=== PATIENT | male | born 1975 | race Caucasian/White ===

== ENCOUNTER 2020-10-12 14:27 | Emergency (ER) | payer OTHER ==
[~2020-10-12] VITALS: Ht 172.7 cm; Wt 88.5 kg
[2020-10-12] MEDS ORDERED: OMEP-218 (14:34)
[2020-10-12 16:43] LABS: BASO # 0.1 10^3/uL (0.0-0.2); BASO % 0.7 % (0.0-1.0); EOS # 0.1 10^3/uL (0.0-0.5); EOS % 1.3 % (0.0-3.0); HEMATOCRIT 43.3 % (42.0-52.0); HEMOGLOBIN 14.4 g/dl (13.5-17.5); LYMPH # 1.4 10^3/uL (1.5-5.0); LYMPH % 20.7 % (24.0-44.0); MEAN CORPUSCULAR HEMOGLOBIN 28.1 pg (27.0-33.0); MEAN CORPUSCULAR HGB CONC 33.3 g/dl (32.0-36.5); MEAN CORPUSCULAR VOLUME 84.6 fl (80.0-96.0); MONO # 0.5 10^3/uL (0.0-0.8); MONO % 6.9 % (2.0-8.0); NEUTROPHILS # 4.8 10^3/uL (1.5-8.5); NEUTROPHILS % 70.1 % (36.0-66.0); PLATELET COUNT, AUTOMATED 311 10^3/uL (150-450); RED BLOOD COUNT 5.12 10^6/uL (4.30-6.10); WHITE BLOOD COUNT 6.9 10^3/uL (4.0-10.0)
[2020-10-12 17:14] LABS: ALBUMIN 4.2 GM/DL (3.2-5.2); ALT/SGPT 58 U/L (12-78); BILIRUBIN,DIRECT < 0.1 MG/DL (0.0-0.2); BILIRUBIN,TOTAL 0.3 MG/DL (0.2-1.0); BLOOD UREA NITROGEN 14 MG/DL (7-18); CARBON DIOXIDE LEVEL 26 MEQ/L (21-32); CHLORIDE LEVEL 107 MEQ/L (98-107); CREATININE FOR GFR 0.76 MG/DL (0.70-1.30); GLOMERULAR FILTRATION RATE > 60.0 (>60); GLUCOSE, FASTING 102 MG/DL (70-100); LIPASE 134 U/L (73-393); POTASSIUM SERUM 4.6 MEQ/L (3.5-5.1); SODIUM LEVEL 139 MEQ/L (136-145); TOTAL PROTEIN 7.4 GM/DL (6.4-8.2)
[2020-10-12] MEDS ORDERED: ISOVUE-370 76% 100ML VIAL As Ordered ONE (18:45)
--- NOTE | 2020-10-12 19:20 | REP ---
INDICATION: upper abdominal pain x 2 months. COMPARISON: None. TECHNIQUE: Multiple ultrasonographic images of the abdominal right upper quadrant. FINDINGS: There is sludge in the gallbladder. There is a nonmobile 4 mm gallbladder wall polyp versus adherent calculus. There is no gallbladder wall thickening or pericholecystic fluid. There is no intrahepatic or extrahepatic biliary duct dilatation. The common biliary duct measures 4.7 mm in diameter. The hepatic parenchyma is mildly hyperechoic compatible with hepato steatosis and homogeneous. There are no hepatic masses. There are limited views of the pancreas, pancreas is mostly obscured by bowel gas. The right kidney is normal size measuring 12.0 x 5.8 x 5.4 cm. There is no right renal calculus, hydronephrosis, cyst or solid mass. There is no right upper quadrant abdominal free fluid. IMPRESSION: There is a non mobile 4 mm gallbladder wall polyp versus adherent calculus. The gallbladder is otherwise unremarkable. There is no evidence of acute cholecystitis. There is mild hepato steatosis. There are limited views of the pancreas. The pancreas is mostly obscured by bowel gas. <Electronically signed by Kyle Norman > 10/12/201916
--- NOTE | 2020-10-12 20:19 | REP ---
INDICATION: upper abdomen. COMPARISON: Abdominal right upper quadrant ultrasound performed earlier today. TECHNIQUE: Abdomen and pelvis CT with IV contrast. FINDINGS: The visualized lung parker are unremarkable. The hepatic parenchyma is homogeneous and otherwise unremarkable. There is a septation in the gallbladder fundus. There are small calcifications in the gallbladder above and below this septation. Additionally there is a 5 mm calculus in the common biliary duct. The common biliary duct proximal to this calculus is dilated measuring up to 14 mm. However, there is no gallbladder wall thickening or pericholecystic fluid to suggest acute cholecystitis. The head, body and tail the pancreas are unremarkable. There is no dilatation of the pancreatic duct. However, there is wall thickening of the proximal transverse colon anterior to the gallbladder and pancreas compatible with infectious versus inflammatory colitis. There are also focal areas of colonic wall thickening in the mid descending colon and in the sigmoid colon, nonspecific, artifact from peristalsis versus inflammatory versus infectious colitis. There is no pneumoperitoneum. There is no ascites. The spleen is unremarkable. The adrenals and kidneys are unremarkable. The abdominal aorta is unremarkable. There is no periaortic adenopathy or mass. There is no bowel distention or obstruction. Pelvis: There is no ascites or adenopathy. The bladder is incompletely distended but otherwise unremarkable. IMPRESSION: There are small gallbladder calculi as described. Additionally there is a 5 mm calculus in the common biliary duct with dilatation of the common duct proximal to this calcification. However, there is no evidence of acute cholecystitis. MRCP might be considered for further evaluation. There is focal wall thickening of the proximal and mid transverse colon compatible with inflammatory versus infectious colitis. Additionally, there is wall thickening of the descending colon and sigmoid colon which is nonspecific and could be secondary to peristalsis or could represent infectious versus inflammatory colitis. There is no ascites. There is no pneumoperitoneum. <Electronically signed by Kyle Norman > 10/12/202014
[2020-10-12 21:47] VITALS: BP 123/84
== END 2020-10-12 21:51 | disposition home or self-care (01) ==
LOC: M ED 14:27
DX: K80.20 Calculus of gallbladder without cholecystitis without obstruction (principal); K21.9 Gastro-esophageal reflux disease without esophagitis; Z87.891 Personal history of nicotine dependence; Z88.0 Allergy status to penicillin
CPT/HCPCS: 74177; 76705; 80048; 80076; 83690; 85025; 99284; Q9967

== ENCOUNTER → 2020-11-01 | Outpatient (CLI) | payer OTHER ==
[~2020-11-01] MED LIST: OMEP-218
--- NOTE | 2020-11-03 09:10 | REP ---
INDICATION: CALCULUS OF BILE DUCT W/ CHRONIC CHOLECYSTITIS. COMPARISON: CT 10/12/2020, ultrasound 10/12/2020. TECHNIQUE: Multiple heavily T2 weighted sequences are obtained in the axial and coronal planes. 3D MIP reconstruction images are performed. FINDINGS: There is no intrahepatic or extrahepatic biliary dilatation. There is no gross biliary stricture and no focal dilatation. Common bile duct has a maximum diameter of approximately 5 mm. Pancreatic duct is normal in caliber. Gallbladder is mildly distended with no wall thickening or edema. There are a few subcentimeter filling defects in the gallbladder compatible with a few subcentimeter stones or polyps. There is gallbladder sludge.. There is no evidence of choledocholithiasis. The visualized liver, spleen, adrenals, pancreas and kidneys are grossly unremarkable. I see no adenopathy or free fluid in the abdomen. IMPRESSION: Few subcentimeter filling defects in the gallbladder compatible with a few subcentimeter stones or polyps. There is gallbladder sludge. There is no biliary dilatation or evidence of choledocholithiasis. <Electronically signed by Kyle Berkowitz > 11/03/20 0906
== END ==
LOC: M RAD 13:29
PROVIDERS: ATTEND Surgery
DX: K80.45 Calculus of bile duct with chronic cholecystitis with obstruction (principal)

== ENCOUNTER → 2020-12-31 | Outpatient (CLI) | payer OTHER, SELFPAY ==
[~2020-12-31] MED LIST changes: +ACET325C5 PO; -OMEP-218; +OMEP-218 PO
== END ==
LOC: M LABSMTC 09:47
PROVIDERS: ATTEND Anesthesiology
DX: Z01.812 Encounter for preprocedural laboratory examination (principal); Z20.822 Contact with and (suspected) exposure to COVID-19

== ENCOUNTER → 2020-12-31 | Outpatient (CLI) | payer SELFPAY ==
--- NOTE | 2021-01-03 16:55 | ECGEPIP ---
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
== END ==
LOC: M EKG 10:09
PROVIDERS: ATTEND Surgery
DX: K80.80 Other cholelithiasis without obstruction (principal)

== ENCOUNTER 2021-01-05 08:24 | Day surgery (SDC) | payer OTHER, SELFPAY ==
[~2021-01-05] VITALS: Ht 175.3 cm; Wt 88.5 kg
[~2021-01-05 08:24] MED LIST changes: +INDOCYANINE GREEN 25MG VIAL (IC-GREEN) IV ONE; +KETOROLAC 60MG 2ML VIAL As Ordered ONE; +LIDOCAINE 1% MDV 20ML VIAL SQ PRN; +LIDOCAINE 2% 100MG/5ML SDV (FOR ANES.) As Ordered ONE; +LR 1,000 ML IV ONE; +LevoFLOXacin IV 500 MG in IV 1 EA IV ONE; +MIDAZOLAM INJ 2MG/2ML VIAL (J2250 PER 1MG) As Ordered ONE; +ONDANSETRON 4MG/2ML VIAL As Ordered ONE; +ROCURONIUM BROMIDE 50 MG/5 ML VIAL As Ordered ONE; +SUGAMMADEX SODIUM 500 MG/5 ML VIAL (BRIDION) As Ordered ONE; +dexameTHASONE 4 MG/ML 1ML VIAL (J1100 PER 1MG) As Ordered ONE; +fentaNYL 250 MCG/5 ML INJECTION (J3010) As Ordered ONE; +propofoL 200 MG/20 ML VIAL As Ordered ONE
--- OUTSIDE RECORDS SUMMARY | 2021-01-05 08:27 | CCD | Continuity of Care Document ---
Author Author YOBANI CHURCH, Luis MORALES Organization Unknown Address [address] [facility] [address] [place] [address] Phone [phone] Care Team Providers Care Corporate Travel Consultant Name Role Phone Carly Jiang N.P AUTM [phone] No PCP AUTM Unavailable Hemanth Wilkinson AUTM [phone] Problems Description No Information Available Social History Type Date Description Comments Sex Unknown ETOH Use Denies alcohol use QUIT 05/2020 Recreational Drug Use Denies Drug Use Tobacco Use Start: Unknown Quit 2017 Tobacco Use Start: Unknown End: Unknown Patient is a former smoker 1 1/2-2 PPD X22 YRS Allergies, Adverse Reactions, Alerts Active Allergies Reaction Severity Comments Date Penicillin V 10/21/2020 Medications Active Medications SIG Qnty Indications Ordering Provide r Date Omeprazole 20mg Capsules DR Take One Capsule By Mouth Twice A Day Unknown Ibuprofen 200 200mg Tablets 2 tabs by mouth twice a day Unknown Tylenol 325mg Tablets 2 tabs by mouth twice a day Unknown One Daily Mens 50+ Multivitamin Mens 50+ Tablets 1 by mouth every day Unknown 0 000 Vitamin B-12 500mcg Tablets 1 by mouth every day Unknown Honey Goat [place] Daily Unknown 0 Roar daily Unknown Immunizations Description No Information Available Vital Signs Date Vital Result Comment 10/21/2020 2:16pm BP Systolic 128 mmHg BP Diastolic 80 mmHg Body Temperature 99.4 F Height 69 inches 5'9" Weight 197.12 lb BMI (Body Mass Index) 29.1 kg/m2 [place] Body Weight 160 lb Weight 89.416 kg BSA (Body Surface Area) 2.05 m2 Results Description No Information Available Procedures Description No Information Available Medical Devices Description No Information Available Encounters Description No Information Available Assessments Description No Information Available Plan of Treatment Future Appointment(s):* 11/24/2020 2:00 pm - RADHA Morel at [facility] Functional Status Description No Information Available Mental Status Description No Information Available Referrals Refer to Dr Reason for Referral Status Appt Date Darnell Mendez M.D. GERD Scheduled 11/24 [facility] [address] [facility], [place] [address] [phone]
--- OUTSIDE RECORDS SUMMARY | 2021-01-05 08:27 | CCD | Continuity of Care Document ---
Author Author YOBANI CHURCH, Luis MORALES Organization Unknown Address [address] [facility] [address] [place] [address] Phone [phone] Care Team Providers Care Brine Room Laborer Name Role Phone Carly Jiang N.P AUTM [phone] No PCP AUTM Unavailable Hemanth Wilkinson AUTM [phone] Problems Description No Information Available Social History [...] by mouth every day Unknown Honey Goat [place] Daily Unknown 0 Roar daily Unknown Immunizations Description No Information Available Vital Signs Date Vital Result Comment 10/21/2020 2:16pm BP Systolic 128 mmHg BP Diastolic 80 mmHg Body Temperature 99.4 F Height 69 inches 5'9" Weight 197.12 lb BMI (Body Mass Index) 29.1 kg/m2 [place] Body Weight 160 lb Weight 89.416 kg BSA (Body Surface Area) 2.05 m2 Results Description No Information Available Procedures Description No Information Available Medical Devices Description No Information Available Encounters Description No Information Available Assessments Description No Information Available Plan of Treatment Future Appointment(s):* 11/24/2020 2:00 pm - RADHA Morel at [facility]ology Practice Functional Status Description No Information Available Mental Status Description No Information Available Referrals Refer to Dr Reason for Referral Status Appt Date Darnell Mendez M.D. GERD Scheduled 11/24 [facility] [address] [facility], [place] [address] [phone]
--- OUTSIDE RECORDS SUMMARY | 2021-01-05 08:27 | CCD | Continuity of Care Document ---
Author Author YOBANI CHURCH, Luis MORALES Organization Unknown Address [address] [facility] [address] [place] [address] Phone [phone] Care Team Providers Care Assistant Nurse Manager Name Role Phone Carly Jiang N.P AUTM [phone] No PCP AUTM Unavailable Hemanth Wilkinson AUTM Problems Description No Information Available Social History Type Date Description Comments Sex Unknown ETOH Use Denies alcohol use QUIT 05/2020 Recreational Drug Use Denies Drug Use Tobacco Use Start: Unknown Quit 2017 Tobacco Use Start: Unknown End: Unknown Patient is a former smoker 1 1/2-2 PPD X22 YRS Allergies, Adverse Reactions, Alerts Active Allergies Criticality Reaction | Severity Comments Date Penicillin V Unable to assess criticality 10/21/2020 Medications Active Medications SIG Qnty Indications [...] by mouth every day Unknown Honey Goat [place] Daily Unknown 0 Roar daily Unknown Immunizations Description No Information Available Vital Signs Date Vital Result Comment 11/06/2020 3:05pm BP Systolic 156 mmHg BP Diastolic 89 mmHg Heart Rate 80 /min Body Temperature 99.2 F Height 69 inches 5'9" Weight 192.00 lb BMI (Body Mass Index) 28.4 kg/m2 [place] Body Weight 160 lb Weight 87.091 kg BSA (Body Surface Area) 2.03 m2 10/21/2020 2:16pm BP Systolic 128 mmHg BP Diastolic 80 mmHg Body Temperature 99.4 F Height 69 inches 5'9" Weight 197.12 lb BMI (Body Mass Index) 29.1 kg/m2 [place] Body Weight 160 lb Weight 89.416 kg BSA (Body Surface Area) 2.05 m2 Results Description No Information Available Procedures Description No Information Available Medical Devices Description No Information Available Encounters Description No Information Available Assessments Description No Information Available Plan of Treatment Future Appointment(s):* 11/24/2020 2:00 pm - RADHA Morel at [facility] Gastroenterology Practice Functional Status Description No Information Available Mental Status Description No Information Available Referrals Refer to Reason for Referral Status Appt Date Darnell Mendez M.D. GERD Scheduled 11/24 [facility] [address] [facility], [place] [address] [phone]
--- OUTSIDE RECORDS SUMMARY | 2021-01-05 08:27 | CCD | Continuity of Care Document ---
Author Author YOBANI CHURCH, Luis MORALES Organization Unknown Address [address] [facility] [address] [place] [address] Phone [phone] Care Team Providers Care Ash Handler Name Role Phone Carly Jiang N.P AUTM [phone] No PCP AUTM Unavailable Hmeanth Wilkinson AUTM Problems Description No Information Available Social History Type Date Description Comments Sex Unknown ETOH Use Denies alcohol use QUIT 05/2020 Recreational Drug Use Denies Drug Use Tobacco Use Start: Unknown Quit 2017 Tobacco Use Start: Unknown End: Unknown Patient is a former smoker 1 1/2-2 PPD X22 YRS Allergies and adverse reactions Active Allergies Criticality Reaction | Severity Comments [...] by mouth every day Unknown Honey Goat [place] Daily Unknown 0 Roar daily Unknown Immunizations Description No Information Available Vital Signs Date Vital Result Comment 11/06/2020 3:05pm BP Systolic 156 mmHg BP Diastolic 89 mmHg Heart Rate 80 /min Body Temperature 99.2 F Height 69 inches 5'9" Weight 192.00 lb BMI (Body Mass Index) 28.4 kg/m2 [place] Body Weight 160 lb Weight 87.091 kg BSA (Body Surface Area) 2.03 m2 10/21/2020 2:16pm BP Systolic 128 mmHg BP Diastolic 80 mmHg Body Temperature 99.4 F Height 69 inches 5'9" Weight 197.12 lb BMI (Body Mass Index) 29.1 kg/m2 [place] Body Weight 160 lb Weight 89.416 kg BSA (Body Surface Area) 2.05 m2 Results Description No Information Available Procedures Date Code Description Status 11/06/2020 33035 Office/Outpatient Established Mo d MDM 30-39 Min Completed 10/21/2020 03032 Office/Outpatient New Low MDM 30 -44 Minutes Completed Medical Devices Description No Information Available Encounters Type Date Location Provider Dx Diagnosis Office Visit 11/06/2020 3:00p [facility] Daniel Sandoval MD K80.20 Calculus of gallbladder w/o cholecystitis w/o obstruction Office Visit 10/21/2020 2:00p [facility] Daniel Sandoval MD K80.20 Calculus of gallbladder w/o cholecystitis w/o obstruction Assessments Date Code Description Provider 11/06/2020 K80.20 Cholelithiasis without obstructi on Clarence Sandoval MD 10/21/2020 K80.20 Cholelithiasis without obstructi on Clarence Sandoval MD Plan of Treatment Future Appointment(s):* 01/19/2021 9:15 am - SHAY Mckeon at [facility] * 01/05/2021 12:45 pm - Clarence Sandoval MD at [facility] 11/06/2020 - Clarence Sandoval MD* K80.20 Cholelithiasis without obstruction* Comments:* Since we saw him last, he reports an episode of biliary colic episode last Tuesday. He had an MRCP done last week and this did not demonstrate any dilation of the biliary tract no evidence for choledocholithiasis. We will proceed with robotic assisted laparoscopic cholecystectomy. I explained to him that this is usually an outpatient procedure. This will be done under general anesthesia.I discussed with the patient the details of the proposed procedure, the benefits of performing the procedure, the most common risks on doing the procedure. This may include risks of general anesthesia, risks of laparoscopy including bowel and vascular injury, risks specific to gallbladder surgery including bile duct injury, bile leak. We also discussed the expected postoperative course, sequelae to not having gallbladder including loose stools, frequent stools. I have given him a chance to ask questions, voice out concerns. Patient has agreed to proceedHe was asking for an excuse letter for his absence from work. I told him we will give him an excuse letter for the time that we saw him and was evaluated by us. Functional Status Description No Information Available Mental Status Description No Information Available Referrals Refer to Reason for Referral Status Appt Date Darnell Mendez M.D. GERD Scheduled 11/24 [facility]- [address] [facility], [address] [place] [address] [phone]
--- OUTSIDE RECORDS SUMMARY | 2021-01-05 08:27 | CCD ---
Author Author [facility] Organization [facility] Address Unknown Phone Unavailable Care Team Providers Care Capital [employer] Specialist Name Role Phone Jiang Carly SENIOR STATISTICIAN Unavailable Unavailable Jiang, Carly SENIOR STATISTICIAN Unavailable Unavailable Jiang, Carly SENIOR STATISTICIAN Unavailable Unavailable Jiang, Carly SENIOR STATISTICIAN Unavailable Unavailable Jiang, Carly SENIOR STATISTICIAN Unavailable Unavailable Jiang, Carly SENIOR STATISTICIAN Unavailable Unavailable Jiang, Carly SENIOR STATISTICIAN Unavailable Unavailable Jiang, Carly SENIOR STATISTICIAN Unavailable Unavailable Jiang, Carly SENIOR STATISTICIAN Unavailable Unavailable Jiang, Carly SENIOR STATISTICIAN Unavailable Unavailable Jiang, Carly SENIOR STATISTICIAN Unavailable Unavailable Jiang, Carly SENIOR STATISTICIAN Unavailable Unavailable Jiang, Carly SENIOR STATISTICIAN Unavailable Unavailable Alex HILTON MD Unavailable Unavailable Alex HILTON MD Unavailable Unavailable Alex HILTON MD Unavailable Unavailable Alex HILTON MD Unavailable Unavailable Alex HILTON MD Unavailable Unavailable Alex HILTON MD Unavailable Unavailable Alex HILTON MD Unavailable Unavailable Alex HILTON MD Unavailable Unavailable Alex HILTON MD Unavailable Unavailable Alex HILTON MD Unavailable Unavailable Alex HILTON MD Unavailable Unavailable Alex HILTON MD Unavailable Unavailable Alex HILTON MD Unavailable Unavailable Alex HILTON MD Unavailable Unavailable Alex HILTON MD Unavailable Unavailable Alex HILTON MD Unavailable Unavailable Alex HILTON MD Unavailable Unavailable BARAYUGA, Alex MORALES MD Unavailable Unavailable BARAYUGA, Alex MORALES MD Unavailable Unavailable BARAYUGA, Alex MORALES MD Unavailable Unavailable BARAYUGA, Alex FRANCOISO Unavailable Unavailable BARAYUGA, Alex FRANCOISO Unavailable Unavailable BARAYUGA, Alex FRANCOISO Unavailable Unavailable BARAYUGA, Alex CARMEN Unavailable Unavailable BARAYUGA, B CARMEN Unavailable Unavailable BARAYUGA, B CARMEN Unavailable Unavailable BARAYUGA, B CARMEN Unavailable Unavailable BARAYUGA, B CARMEN Unavailable Unavailable BARAYUGA, B CARMEN Unavailable Unavailable BARAYUGA, B CARMEN Unavailable Unavailable BARAYUGA, B CARMEN Unavailable Unavailable BARAYUGA, B CARMEN Unavailable Unavailable BARAYUGA, B CARMEN MD Unavailable Unavailable BARAYUGA, B CARMEN MD Unavailable Unavailable BARAYUGA, B CARMEN MD Unavailable Unavailable Call, Cindy Mili PA Unavailable Unavailable Call, Cindy Mili PA Unavailable Unavailable Call, Cindy Mili PA Unavailable Unavailable Call, Cindy Mili PA Unavailable Unavailable Call, Cindy Mili PA Unavailable Unavailable Call, Cindy Mili PA Unavailable Unavailable Call, Cindy Mili PA Unavailable Unavailable Call, Cindy Mili PA Unavailable Unavailable Call, Cindy Mili PA Unavailable Unavailable Call, Cindy Mili PA Unavailable Unavailable Re-disclosure Warning The records that you are about to access may contain information from federally-assisted alcohol or drug abuse programs. If such information is present, then the following federally mandated warning applies: This information has been disclosed to you from records protected by federal confidentiality rules (42 CFR part 2). The federal rules prohibit you from making any further disclosure of this information unless further disclosure is expressly permitted by the written consent of the person to whom it pertains or as otherwise permitted by 42 CFR part 2. A general authorization for the release of medical or other information is NOT sufficient for this purpose. The Federal rules restrict any use of the information to criminally investigate or prosecute any alcohol or drug abuse patient.The records that you are about to access may contain highly sensitive health information, the redisclosure of which is protected by Article 27-F of the [facility] Public Health law. If you continue you may have access to information: Regarding HIV / AIDS; Provided by facilities licensed or operated by the [facility] Office of Mental Health; or Provided by the [facility] Office for People With Developmental Disabilities. If such information is present, then the following [facility] mandated warning applies: This information has been disclosed to you from confidential records which are protected by state law. State law prohibits you from making any further disclosure of this information without the specific written consent of the person to whom it pertains, or as otherwise permitted by law. Any unauthorized further disclosure in violation of state law may result in a fine or retirement sentence or both. A general authorization for the release of medical or other information is NOT sufficient authorization for further disc losure. Family History Family Member Name Family Member Gender Family Member Status Date o f Status Description Data Source(s) Unknown Unknown Problem [facility] ([facility]) Mother Encounters Encounter Providers Location Date Indications Data Source(s ) Outpatient Attender: CARMEN Bustillos/Jacy/ Asher 11/06/2020 03:00:00 PM EDT [facility] ([facility] Outpatient Attender: CARMEN Sterling 10/21/2020 02:00:00 PM EDT [facility] ([facility]) Outpatient Attender: Carly ch 09/16/2020 04:50:00 PM EDT [facility] ([facility]) Outpatient Attender: Mili krishnamurthy 05/27/2020 05:35:00 PM EDT [facility] ([facility]) Medications Medication Brand Name Start Date Product Form Dose Route Admi nistrative Instructions Pharmacy Instructions Status Indications Reaction Description Data Source(s) 20 mg 09/17/2020 12:00:00 AM EDT capsule,delayed release (DR/EC) 30 TAKE ONE CAPSULE BY MOUTH TWICE A DAY TAKE ONE CAPSULE BY MOUTH TWICE A DAY SOLD: 10/19/2020 [facility] 20 mg 09/17/2020 12:00:00 AM EDT capsule,delayed release (DR/EC) 30 TAKE ONE CAPSULE BY MOUTH TWICE A DAY TAKE ONE CAPSULE BY MOUTH TWICE A DAY SOLD: 09/17/2020 [facility] Omeprazole 20 MG Delayed Release Oral Capsule Omeprazole 09/16/2020 12:00:00 AM EDT ORAL active [facility] ([facility]) Insurance Providers Payer name Policy type / Coverage type Policy ID Covered alliance party ID Covered alliance party's relationship to watkins Policy [place] Plan Information [facility] [id number] SP [id number] SELF PAY ONLY [id number] SP [id number] [facility] [id number] SP [id number] [facility] [id number] SP [id number] [facility] Organization ([facility]) [id number] Self [id number] [facility] ([facility]) [id number] Self [id number] Problems, Conditions, and Diagnoses No Information Surgeries/Procedures Procedure Description Date Indications Data Source(s) OFFICE OUTPATIENT VISIT 25 MINUTES 11/06/2020 12:00:00 AM EDT [facility] ([facility]) OFFICE OUTPATIENT NEW 30 MINUTES 10/21/2020 12:00:00 A M EDT [facility] ([facility]) OFFICE OUTPATIENT VISIT 15 MINUTES 09/16/2020 12:00:00 AM EDT [facility] ([facility]) Remove Impact Cerumen Irrigati 05/27/2020 12:00:00 AM EDT [facility] ([facility]) OFFICE OUTPATIENT VISIT 15 MINUTES 05/27/2020 12:00:00 AM EDT [facility] ([facility]) Results ID Date Data Source [id number] 12/31/2020 09:40:00 AM EDT [facility] Name Value Range Interpretation Code Description Data Rossy rce(s) Supporting Document(s) SARS-CoV-2 (COVID-19) RNA [Presence] in Respiratory specimen by MARY with probe detection Not Detected [facility] This lab was ordered by [facility] and reported by [facility]. Procedure Social History No Information Vital Signs ID Date Data Source UNK Name Value Range Interpretation Code Description Data Source(s) Systolic blood pressure 156 mm[Hg] 156 mm[Hg] [facility] ([facility]) Diastolic blood pressure 89 mm[Hg] 89 mm[Hg] [facility] ([facility]) Heart rate 80 /min 80 /min [facility] ([facility]) Body temperature 99.2 [degF] 99.2 [degF] [facility] ([facility]) Body height 69 [in_i] 69 [in_i] [facility] ([facility]) 5'9" Body weight 192.00 [lb_av] 192.00 [lb_av] [facility] ([facility]) Body mass index (BMI) [Ratio] 28.4 kg/m2 28.4 k g/m2 [facility] ([facility]) [place] body weight 160 [lb_av] 160 [lb_av] [facility] ([facility]) Body weight 87.091 kg [address] [facility] ([facility]) Body surface area Derived from formula 2.03 m2 [address] [facility] ([facility]) Systolic blood pressure 128 mm[Hg] 128 mm[Hg] [facility] ([facility]) Diastolic blood pressure 80 mm[Hg] 80 mm[Hg] [facility] ([facility]) Body temperature 99.4 [degF] 99.4 [degF] [facility] ([facility]) Body height 69 [in_i] 69 [in_i] [facility] ([facility]) 5'9" Body weight 197.12 [lb_av] 197.12 [lb_av] [facility] ([facility]) Body mass index (BMI) [Ratio] 29.1 kg/m2 29.1 k g/m2 [facility] ([facility]) [place] body weight 160 [lb_av] 160 [lb_av] [facility] ([facility]) Body weight 89.416 kg 89.416 kg [facility] ([facility]) Body surface area Derived from formula 2.05 m2 [address] [facility] ([facility]) Systolic blood pressure 132 mm[Hg] 132 mm[Hg] [facility] ([facility], [facility]) Diastolic blood pressure 66 mm[Hg] 66 mm[Hg] [facility] ([facility], [facility]) Heart rate 97 /min 97 /min [facility] ([facility]) Respiratory rate 16 /min 16 /min [facility] ( [facility], [facility]) Oxygen saturation in Arterial blood by Pulse oximetry 98 % 98 % [facility], [facility]) Body temperature 99.5 [degF] 99.5 [degF] [facility] ([facility], [facility]) Body weight 180.00 [lb_av] 180.00 [lb_av] [facility] T ([facility], [facility]) Body height 69 [in_i] 69 [in_i] [facility] ([facility], [facility]) 5'9" Body mass index (BMI) [Ratio] 26.6 kg/m2 26.6 k g/m2 [facility] ([facility], [facility]) Systolic blood pressure 142 mm[Hg] 142 mm[Hg] [facility] ([facility], [facility]) Diastolic blood pressure 84 mm[Hg] 84 mm[Hg] [facility] ([facility], [facility]) Heart rate 90 /min 90 /min [facility] ([facility], [facility]) Respiratory rate 16 /min 16 /min [facility] ( [facility], [facility]) Oxygen saturation in Arterial blood by Pulse oximetry 97 % 97 % [facility] ([facility], [facility]) Body temperature 98.4 [degF] 98.4 [degF] [facility] ([facility], [facility]) Body weight 180.00 [lb_av] 180.00 [lb_av] [facility] T ([facility], [facility]) Body height 69 [in_i] 69 [in_i] [facility] ([facility], [facility]) 5'9" Body mass index (BMI) [Ratio] 26.6 kg/m2 26.6 k g/m2 [facility])
--- OUTSIDE RECORDS SUMMARY | 2021-01-05 08:27 | CCD | Continuity of Care Document ---
Author Author YOBANI CHURCH, Luis MORALES Organization Unknown Address [address] [place] [address] Phone [phone] Care Team Providers Care Rolfer Name Role Phone Carly Jiang N.P AUTM [phone] No PCP AUTM Unavailable Hemanth Wilkinson AUTM [...] by mouth every day Unknown Honey Goat [place] Daily Unknown 0 Roar daily Unknown Immunizations Description No Information Available Vital Signs Date Vital Result Comment 11/06/2020 3:05pm BP Systolic 156 mmHg BP Diastolic 89 mmHg Heart Rate 80 /min Body Temperature 99.2 F Height 69 inches 5'9" Weight 192.00 lb BMI (Body Mass Index) 28.4 kg/m2 [place] Body Weight 160 lb Weight 87.091 kg BSA (Body Surface Area) 2.03 m2 10/21/2020 2:16pm BP Systolic 128 mmHg BP Diastolic 80 mmHg Body Temperature 99.4 F Height 69 inches 5'9" Weight 197.12 lb BMI (Body Mass Index) 29.1 kg/m2 [place] Body Weight 160 lb Weight 89.416 kg BSA (Body Surface Area) 2.05 m2 Results Description No Information Available Procedures Date Code Description Status 11/06/2020 49524 Office/Outpatient Established Mo d MDM 30-39 Min Completed 10/21/2020 97956 Office/Outpatient New Low MDM 30 -44 Minutes Completed Medical Devices Description No Information Available Encounters Type Date Location Provider Dx Diagnosis Office Visit 11/06/2020 3:00p [facility] Daniel Sandoval MD K80.20 Calculus of gallbladder w/o cholecystitis w/o obstruction Office Visit 10/21/2020 2:00p [facility] Daniel Sandoval MD K80.20 Calculus of gallbladder w/o cholecystitis w/o obstruction Assessments Date Code Description Provider 11/06/2020 K80.20 Cholelithiasis without obstructi on Clarence Sandoval MD 10/21/2020 K80.20 Cholelithiasis without obstructi on Clarence Sandoval MD Plan of Treatment Future Appointment(s):* 01/19/2021 9:15 am - SHAY Mckeon at [facility] * 01/05/2021 12:45 pm - Clarence Sandoval MD at [facility] 11/06/2020 - Clarence Sandoval MD* K80.20 Cholelithiasis [...] Reason for Referral Status Appt Date Darnell Mendze M.D. GERD Scheduled 11/24 [facility] [address], [address] [place] [address] [phone]
--- OUTSIDE RECORDS SUMMARY | 2021-01-05 08:27 | CCD | Continuity of Care Document ---
Author Author YOBANI CHURCH, Luis MORALES Organization Unknown Address [address] [place] [address] Phone [phone] Care Team Providers Care Superintendent Storage Area Name Role Phone Carly Jiang N.P AUTM [phone] No PCP AUTM Unavailable Hemanth Wilkinson AUTM [phone] Problems Description No Information Available Social History [...] by mouth every day Unknown Honey Goat [place] Daily Unknown 0 Roar daily Unknown Immunizations Description No Information Available Vital Signs Date Vital Result Comment 10/21/2020 2:16pm BP Systolic 128 mmHg BP Diastolic 80 mmHg Body Temperature 99.4 F Height 69 inches 5'9" Weight 197.12 lb BMI (Body Mass Index) 29.1 kg/m2 [place] Body Weight 160 lb Weight 89.416 kg BSA (Body Surface Area) 2.05 m2 Results Description No Information Available Procedures Description No Information Available Medical Devices Description No Information Available Encounters Description No Information Available Assessments Description No Information Available Plan of Treatment Future Appointment(s):* 11/24/2020 2:00 pm - RADHA Morel at [facility] Functional Status Description No Information Available Mental Status Description No Information Available Referrals Refer to Dr Reason for Referral Status Appt Date Darnell Mendez M.D. GERD Scheduled 11/24 [facility] [address], [place] [address] [phone]
[2021-01-05] MEDS ORDERED: LIDOCAINE 1% SDV 30ML VIAL As Ordered ONE (11:07)
[2021-01-05] MEDS ORDERED: BUPIVACAINE HCL 0.25% 30ML VIAL As Ordered ONE (11:07)
[2021-01-05] MEDS ORDERED: CONRAY-60 60% 50ML VIAL (Q9961) As Ordered ONE (11:08)
[2021-01-05] MEDS ORDERED: ACETAMINOPHEN 1000MG 100ML IV BTL (OFIRMEV) (J0131 PER 10MG) As Ordered ONE (12:08)
[2021-01-05] MEDS ORDERED: NORCO, ANEXSIA 5/325MG TABLET (HYDROcodone/ACETAMINOPHEN) PO PRN (13:35)
[2021-01-05] MEDS ORDERED: LR 1,000 ML IV SCH (13:35)
[2021-01-05] MEDS ORDERED: ONDANSETRON 4MG/2ML VIAL IV PRN (13:35)
[2021-01-05] MEDS ORDERED: HYDROMORPHONE HCL 0.5 MG/ 0.5 ML SYRINGE (J1170 PER 1) IV PRN (13:35)
[2021-01-05] MEDS ORDERED: KETOROLAC 30 MG/ML 1ML VIAL IV PRN (13:35)
[2021-01-05] MEDS ORDERED: oxyCODONE 5MG TAB PO PRN (13:35)
[2021-01-05] MEDS ORDERED: METOCLOPRAMIDE INJ 10MG/2ML VIAL (J2765 PER 1) IV PRN (13:35)
[2021-01-05] MEDS ORDERED: fentaNYL 100 MCG/2 ML INJECTION (J3010) IV PRN (13:35)
[2021-01-05 13:45] VITALS: BP 132/96
--- NOTE | 2021-01-06 04:38 | ROOPDOC ---
[facility] Report Of Operation Report of Operation DATE OF PROCEDURE: 01/05/21 PREPROCEDURE DIAGNOSES: Cholelithiasis, history of acute cholecystitis. POSTPROCEDURE DIAGNOSES: Cholelithiasis, chronic cholecystitis. PROCEDURE PERFORMED: Robotic assisted laparoscopic cholecystectomy with ICG for biliary tract identification. SURGEON: Clarence Sandoval MD LBD TEACHER: Whitney Box NP Box assisted me with placement of ports, instrument exchange and management of the robotic arms, extraction of the gallbladder and closure of ports ANESTHESIA: General endotracheal anesthesia. ESTIMATED BLOOD LOSS: Approximately 10 mL. COMPLICATIONS: None. REMARKS: Patient is a 45-year-old male who has at least one documented episode of acute cholecystitis when he presented to the emergency room with acute onset of right upper quadrant pain with evidence for cholelithiasis and acute cholecystitis. At that time he had transient elevation of his LFTs. This was worked up with an MRCP preoperatively that did not show any biliary tract identification, no external biliary tree abnormality, no presence of c holedocholithiasis. He is for cholecystectomy today.. FINDINGS: Chronically thickened gallbladder, moderate amounts of fatty tissue deposition to the hepatocystic triangle. And ICG and firefly, the gallbladder does not opacify and on further dissection the distal cystic duct does not opacify with opacification of the proximal cystic duct, common bile duct, common hepatic duct signifying a distal obstruction to the cystic duct due to a stone that is chronically impacted at the area. SPECIMENS REMOVED: Gallbladder DESCRIPTION OF PROCEDURE: Patient was given a dose of Levaquin 500 mg IV preoperatively. 2.5 mg of ICG was given IV in the preop area. He was brought to the operating room, laid supine on the table, compression boots placed for DVT prophylaxis. General endotracheal anesthesia started. His abdomen then prepped and draped in usual sterile fashion. Surgical timeout was performed prior to confirm right procedure, right patient identification and other necessary information prior to starting surgery. Entry into the abdomen done through an incision below and slightly to the left of the umbilical cleft. A Veress needle was inserted with a controlled fashion. CO2 insufflation started to pressure 15 mmHg. Using the same incision an 8 mm robotic trochar was placed under direct vision laparoscope. The area underneath the insertion site was inspected and no injury found. He was then placed on a 10 reverse Trendelenburg, tilted slightly towards the left side. Under direct vision I placed three more 8 mm trochars along a row level to the camera port site. A transversus abdominis plane block was then performed bilaterally using the lidocaine/marcaine mixture under laparoscopic guidance. 20 mLs of the mixture placed on each side. The da Reid robot tower was then maneuvered in place and the trochars docked to the robot. After positioning the instruments inside of the abdomen, and scrubbed in to control of the camera and robotic instruments at the surgeon's console while my document control assistant remains on the field. Operative findings: Liver is smooth appearing without any noticeable lesions on the surface. Gallbladder is contracted, moderately thick wall which is chronic. There is moderate amounts of fatty deposition to the hepatocystic triangle. I could make up a moderate-sized stone at the fundus of the gallbladder. On firefly, the liver lights up. The gallbladder does not light up. The common hepatic duct, common bile duct lights up, proximal cystic duct lights up but there is a cut off as it approaches the gallbladder at the proximal third of the cystic duct signifying persistent obstruction at the area.. The gallbladder is retracted superiorly to expose the neck of the gallbladder and hepatocystic triangle. Dissection was done with intermittent use of near infrared light and white light for identification of the relevant biliary ductal structures. The peritoneal covering at the neck of the gallbladder was opened up medially and laterally. The infundibulum is retracted laterally 1 approach to the hepatocystic triangle. The lymph node is identified there is moderate amount of fatty deposition at the hepatocystic triangle which was carefully dissected to expose the duct and artery. I started my hepatocystic triangle dissection. The course of the cystic artery was identified and this was circumferentially dissected. By switching between firefly mode and white light and dissected circumferentially the course of the infundibulum of the gallbladder as well as the cystic duct. The cystic artery and then the cystic duct was circumferentially dissected. The cystic plate at the lower body and neck of the gallbladder was cleared. Dissection performed until there is a critical view of safety achieved with only the cystic duct and artery as the only structures approaching the neck of the gallbladder and clearance of the lower body of the gallbladder from the cystic plate of the liver. (helped with illumination of the duct with firefly mode). I noted that the proximal cystic duct illuminates on firefly but there is a cut off signifying there is a persistent obstruction so I proceeded dissecting more proximally at the cystic duct and there is a stone lodged at the proximal third of the cystic duct. I dissected below this area. At this point the cystic art art was clipped twice and divided. The cystic duct was clipped twice on the down side and once the gallbladder side and this was divided in between the clips. Presence of the stone on the cystic duct confirmed. On firefly mode there was no bile leakage and I could see. The rest of the gallbladder dissected from the liver bed and detached. The gallbladder/liver bed is examined to ensure adequate hemostasis and again switching between the white light and firefly mode look for evidence for leakage and none was found. The gallbladder was placed in an Endo Catch bag and retrieved through the right sided port site with minimal enlargement of the tract. The fascial defect is then closed with 2 OV lock in a running fashion.. The abdomen was then deflated all ports removed. The skin incisions were closed with 4-0 Monocryl subcutaneous thickening fashion. The drain was secured to the skin with 2-0 silk. Patient is stable throughout the procedure. Dermabond was used for postoperative dressing. He was promptly awakened, extubated and brought to recovery room in stable condition. CLARENCE SANDOVAL MD Jan 06, 2021 04:38
== END 2021-01-05 14:30 | disposition home or self-care (01) ==
LOC: M SDC 08:24
PROVIDERS: ATTEND Surgery
DX: K81.1 Chronic cholecystitis (principal); I10 Essential (primary) hypertension; E78.5 Hyperlipidemia, unspecified; K58.8 Other irritable bowel syndrome; K21.9 Gastro-esophageal reflux disease without esophagitis; F41.9 Anxiety disorder, unspecified; F32.9 Major depressive disorder, single episode, unspecified; Z79.899 Other long term (current) drug therapy; Z88.0 Allergy status to penicillin; Z87.891 Personal history of nicotine dependence
CPT/HCPCS: 47563; 88304; J0131; J1100; J1885; J1956; J2250; J2405; J3010; Q9968; S2900